=== PATIENT | female | born 1990 | race Caucasian/White ===

== ENCOUNTER 2025-01-07 09:00 | Emergency (ER) | payer MEDICAID ==
[~2025-01-07] VITALS: Ht 162.6 cm; Wt 75.0 kg
[2025-01-07 09:14] VITALS: O2SAT 99
[2025-01-07 09:57] LABS: BASOPHILS % 0.5 % (0.0-2.0); EOSINOPHILS % 1.9 % (0.0-5.0); HEMATOCRIT. 38.8 % (36.0-48.0); HEMOGLOBIN. 13.0 g/dL (12.0-16.0); LYMPHOCYTES % 23.4 % (20.0-50.0); MEAN PLATELET VOLUME 8.5 fl (7.4-10.4); MONOCYTES % 7.7 % (2.0-8.0); NEUTROPHILS % 66.5 % (40.0-76.0); PLATELET 332 x1000/uL (130-400); RED BLOOD CELL COUNT 4.10 mill/uL (4.2-5.4); RED CELL DISTRIBUTION WIDTH 13.0 % (11.6-14.6)
[2025-01-07 10:08] LABS: CREATININE 0.8 mg/dL (0.6-1.0)
[2025-01-07 10:09] LABS: UREA NITROGEN BLOOD 7 mg/dL (9-23)
[2025-01-07 10:10] LABS: ASPARTATE AMINOTRANSFERASE 16 IU/L (<34)
[2025-01-07 10:11] LABS: CLARITY URINE CLEAR (CLEAR); COLOR URINE YELLOW (YELLOW); GLUCOSE URINE NEGATIVE (NEGATIVE); KETONES URINE NEGATIVE (NEGATIVE); PH URINE 7.5 (4.5-8.0); PROTEIN URINE NEGATIVE (NEGATIVE); SPECIFIC GRAVITY URINE 1.015 (1.005-1.030)
[2025-01-07 10:11] LABS: BILIRUBIN DIRECT 0.4 mg/dL (<=3.0); BILIRUBIN TOTAL 1.3 mg/dL (0.1-1.0); PROTEIN TOTAL 7.1 g/dL (6.0-8.3)
[2025-01-07 10:12] LABS: LEUKOCYTE ESTERASE URINE NEGATIVE (NEGATIVE); NITRITE URINE NEGATIVE (NEGATIVE); OCCULT BLOOD URINE 3+ (NEGATIVE); UROBILINOGEN URINE 1.0 E.U./dL (0.2-1.0)
[2025-01-07 10:21] LABS: BACTERIA URINE TRACE; RBC URINE 25-50 /hpf (0-2); SQUAMOUS EPITHELIAL CELL URINE 2+ /lpf (RARE/1+); WBC URINE 0-2 /hpf (0-2); YEAST URINE NONE SEEN
[2025-01-07 10:25] LABS: B-HCG QUANTITATIVE < 1 mIU/mL (<6)
[2025-01-07] MEDS: ACETAMINOPHEN 325MG TABLET PO ONE (11:29)
[2025-01-07 11:33] VITALS: BP 110/64; PULSE 70; RESP 19; TEMP 36.8; O2SAT 97
== END 2025-01-07 11:37 | disposition home or self-care (01) ==
LOC: ER 09:00
DX: O26.899 Other specified pregnancy related conditions, unspecified trimester (principal); O46.90 Antepartum hemorrhage, unspecified, unspecified trimester; R10.2 Pelvic and perineal pain; N93.9 Abnormal uterine and vaginal bleeding, unspecified; Z3A.00 Weeks of gestation of pregnancy not specified
CPT/HCPCS: 36415; 76830; 76856; 80048; 80076; 81003; 81025; 83735; 84702; 85025; 86850; 86900; 99284